=== PATIENT | male | born 1960 | race Caucasian/White ===

== ENCOUNTER 2022-04-05 19:52 | Emergency (ER) | payer MEDICAID, OTHER | END 2022-04-05 21:32 | disposition home or self-care (01) | LOC: LB.ED 19:52 | DX: R33.9 Retention of urine, unspecified (principal); N32.0 Bladder-neck obstruction; I10 Essential (primary) hypertension; K21.9 Gastro-esophageal reflux disease without esophagitis; Z79.899 Other long term (current) drug therapy | CPT/HCPCS: 51702; 81001; 99282; 99283 ==